=== PATIENT | female | born 2000 | race Caucasian/White ===

== ENCOUNTER → 2021-05-14 | Outpatient (CLI) | payer BC ==
--- NOTE | 2021-05-14 19:13 | RAD ---
EXAM: Right ankle 3 views. HISTORY: Right ankle pain. COMPARISON: None. FINDINGS: Three views of the right ankle are obtained. No fractures are identified. Alignment is normal. Joint spaces are maintained. IMPRESSION: 1. No fracture. Electronically signed by: Bob Plunkett MD (05/14/2021 7:10 PM) [facility]
== END ==
LOC: RAD 17:57
PROVIDERS: ATTEND Nurse Practitioner Family
DX: M25.571 Pain in right ankle and joints of right foot (principal)
CPT/HCPCS: 73610